=== PATIENT | male | born 1970 | race Hispanic/Latino ===

== ENCOUNTER 2025-08-08 07:40 | Day surgery (SDC) | payer OTHER ==
[2025-08-07 10:39] LABS: IMMATURE GRANULOCYTE ABSOLUTE 0.04 K/uL (0-1); NUCLEATED RED BLOOD CELLS 0.0 % (0.0-0.19); PLATELET COUNT (AUTO) 188 K/uL (130-400); RED BLOOD CELL COUNT(AUTO) 5.29 MIL/uL (4.50-6.20); RED CELL DISTRIBUTION WIDTH 13.9 % (11.0-15.5); WHITE BLOOD COUNT (AUTO) 6.9 K/uL (4.8-10.8)
[2025-08-07 10:42] LABS: CREATININE 0.9 mg/dL (0.5-1.3); GLOMERULAR FILTR. RATE CALC 101.0 mL/min (>90); GLUCOSE,RANDOM 118.0 mg/dL (70-105); SODIUM SERUM 140.0 mmol/L (136-145); UREA NITROGEN, BLOOD 10.0 mg/dL (7-18)
[2025-08-07 10:45] LABS: INR 1.08 (0.85-1.15)
[2025-08-07 10:47] VITALS: BP 151/83; PULSE 77; RESP 18; TEMP 99.5
[~2025-08-08] VITALS: Ht 162.6 cm; Wt 91.8 kg
[2025-08-08] VITALS (16 sets, daily range): BP systolic 116–137; BP diastolic 78–89; PULSE 72–88; RESP 12–18; TEMP 97.3–98.2
[~2025-08-08 07:40] MED LIST: IBUP-2077 PO; LISI10TA24 PO; METF-444 PO; MULT-1367 PO; OMEP20CA12 PO; ROPI1TAB46 PO; ROSU10TA72 PO; TAMS-55 PO; TIRZ15PE SQ; [UNRECOGNIZED DRUG - CODE] PO
[2025-08-08] MEDS: 0.9%NACL 1000ML 1,000 ML IV ONE (09:12)
[2025-08-08] MEDS ORDERED: LIDOCAINE PF 100MG/5ML (2%) SYRINGE 5ML ONE (09:20)
[2025-08-08] MEDS ORDERED: MIDAZOLAM HCL 1 MG/ML 2ML VIAL ONE (09:21)
[2025-08-08] MEDS ORDERED: SUCCINYLCHOLINE CHLORIDE 20 MG/ML 10 ML VIAL ONE (09:21)
[2025-08-08] MEDS ORDERED: SUGAMMADEX SODIUM 200 MG/2 ML VIAL IV ONE (13:59)
[2025-08-08] MEDS ORDERED: CYCL-309 PO (16:15)
[2025-08-08] MEDS ORDERED: HYDR-4060 PO (16:15)
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
== END 2025-08-08 17:11 | disposition home or self-care (01) ==
LOC: DAH 07:40
PROVIDERS: ATTEND Student in an Organized Health Care Education/Training Program
DX: S46.012A Strain of muscle(s) and tendon(s) of the rotator cuff of left shoulder, initial encounter (principal); M19.012 Primary osteoarthritis, left shoulder; M75.22 Bicipital tendinitis, left shoulder; M75.42 Impingement syndrome of left shoulder; I10 Essential (primary) hypertension; E11.9 Type 2 diabetes mellitus without complications; K21.9 Gastro-esophageal reflux disease without esophagitis; E66.9 Obesity, unspecified; E78.5 Hyperlipidemia, unspecified; M94.212 Chondromalacia, left shoulder; Z79.01 Long term (current) use of anticoagulants; Z68.33 Body mass index [BMI] 33.0-33.9, adult; W03.XXXA Other fall on same level due to collision with another person, initial encounter; Y93.89 Activity, other specified; Y92.69 Other specified industrial and construction area as the place of occurrence of the external cause; Y99.0 Civilian activity done for income or pay; Z79.84 Long term (current) use of oral hypoglycemic drugs; Z79.899 Other long term (current) drug therapy
CPT/HCPCS: 36415; 80048; 85025; 85730; 85610; 29827; 29826; 29824; 82948 ×2; 64415; C1713; A4663; J7030 ×2; J3010 ×2; J1100; J0330; J3490 ×5; J2003; J0169 ×2; J2250; J2704; J2405; J2795; J2371 ×2; J0690; A6223; A4649; A5120; A4215; A4213; A4222; A4221; A4216; A4450; A4223 ×2; A4600